=== PATIENT | female | born 1985 | race Caucasian/White ===

== ENCOUNTER → 2019-05-26 | Day surgery (SDC) | payer OTHER ==
--- NOTE | 2019-05-29 12:09 | OP ---
DATE OF OPERATION: 05/26/2019 PREOPERATIVE DIAGNOSIS: Right breast mass, 5 o'clock, 3 cm from the nipple. POSTOPERATIVE DIAGNOSIS: Right breast mass, 5 o'clock, 3 cm from the nipple. PROCEDURE: Right ultrasound-guided core biopsy with clip placement. ANESTHESIA: Local. ATTENDING SURGEON: Alvaro Soares MD ESTIMATED BLOOD LOSS: Minimal. COMPLICATIONS: None. PROCEDURE: Patient was made aware of the risks and benefits of the procedure and consented. She was placed in the supine position. Under sterile conditions, with 1% lidocaine for local anesthesia, a small lev was made in the skin. Using a 13-gauge suction biopsy device via lateral approach under ultrasound guidance, multiple cores were obtained and submitted to Pathology. Likewise under ultrasound guidance, a bowtie clip was placed into the biopsy region. Well tolerated by patient. Steri-Strip and sterile bandage was applied. Will contact her with the results. ALVARO SOARES M.D. JOSE [id number]
--- NOTE | 2019-05-31 16:11 | PATH ---
Surgical Pathology Report Patient Name: SHAGGY HENLEY [facility]. Rec. #: [id number] /Age/Gender: 1985 (Age: 34) / F Account: [id number] Location: REPLACED BY [facility] Taken: 05/26/2019 Received: 05/26/2019 Reported: 05/31/2019 Physicians: Alvaro Soares M.D. Specimen(s) Received RIGHT BREAST 5N3 CORE BIOPSY Clinical History Nonpalpable lesion Ultrasound findings: Probably benign Final Diagnosis BREAST, RIGHT, 5:00, 3 CM FN, CORE BIOPSY: BENIGN BREAST TISSUE SHOWING FIBROADENOMA. Electronically Signed Natalie Linn M.D. Gross Description Received in formalin labeled "right breast biopsy 5:00, 3 cmfn," is a 2.0 x 1.6 x 0.3 cm aggregate of multiple boyce-yellow, irregular to cylindrical portions of fibroadipose tissue. The formalin is filtered and the specimen is entirely submitted in one cassette. Time to formalin fixation: < 1 minute Total formalin fixation time: Approximately 27 hours. /05/30/2019 [facility]05/30/2019
== END | disposition home or self-care (01) ==
LOC: FRADUS-SUR 14:01
PROVIDERS: ATTEND Surgery Surgical Oncology
PROC: 0HBT3ZX Excision of Right Breast, Percutaneous Approach, Diagnostic (ICD-10-PCS; principal; 2019-05-26)
DX: D24.1 Benign neoplasm of right breast (principal); N63.14 Unspecified lump in the right breast, lower inner quadrant
CPT/HCPCS: 19083; 87899; 88305-TC; A4648